=== PATIENT | male | born 1950 | race Caucasian/White ===

== ENCOUNTER 2018-09-29 20:08 | Emergency (ER) | payer BC, SELFPAY ==
[2018-09-29 20:09] VITALS: BP 190/110; PULSE 68; RESP 16; TEMP 36.6; O2SAT 96; BMI 38.2
--- NOTE | 2018-09-29 20:36 | RAD_ITS ---
STUDY: X-RAY - RIGHT FOOT CLINICAL: Male, 67 years old. Pain TECHNIQUE: 3 view(s) of the foot. COMPARISON: None. FINDINGS: Normal talus,, and tarsal bones. Small plantar calcaneal spur and posterior enthesophyte Normal visualized subtalar, calcaneocuboid, tarsal and tarsometatarsal articulations. Talonavicular spurring. Normal metatarsi. 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 Normal tibial and fibular sesamoid bones. Normal interphalangeal joint of the great toe. Normal phalanges of the great toe. Normal second through fifth metatarsophalangeal joints. Normal interphalangeal joints and phalanges of the lesser toes. The soft tissue structures are unremarkable. RAD/Foot min 3 Views IMPRESSION: Degenerative changes. No evidence for acute fracture or dislocation Electronically Signed: Tommie Burciaga MD at 20:59 EDT , Service support ,
--- NOTE | 2018-09-29 21:34 | ED.VIS.GEN ---
History of Present Illness Chief Complaint: Lower Extremity Injury Detail of Chief Complaint: Right foot injury Informant: Patient Onset: Today Context: Gradual Onset Timing: Continuous Current Severity: Severe Maximum Severity: Severe Narrative: Patient was playing golf earlier this afternoon when he stepped in a hole. He states his foot twisted and he had immediate pain to the midfoot. He was able to make at home and iced it for several hours. Pain has continued to worsen. He is now able to wiggle toes but has limited range of motion secondary to pain. He came in with crutches. Past Medical History - Allergies and Home Meds Allergies/Adverse Reactions: Allergies No Known Allergies Allergy (Verified 09/29/18 20:09) Primary Care Physician: Js Levin MD [Primary Care Provider] - Prior records reviewed: Yes Past Medical History: - - Reviewed Lives: Spouse/ Significant Other Smoking Status: Former smoker Review of Systems General: Denies: Chills, Fever Eyes: Denies: Visual changes - bilaterally ENT: Denies: Bilateral ear pain Cardiovascular: Denies: Chest pain Respiratory: Denies: Dyspnea Gastrointestinal: Denies: Abdominal pain Musculoskeletal: Reports: Arthralgias, Extremity Pain Skin: Denies: Wounds Neurological: Denies: Parasthesia Hematologic: Denies: Easy bruising Allergy: Denies: Uticaria Physical Exam Vital Signs/Narrative: Vital Signs Temp Pulse Resp BP Pulse Ox 09/29/18 20:09 98 F 68 16 190/110 H 96 Inital Vital Signs reviewed: Yes General: Well nourished Head: Normocephalic ENT: Moist mucous membranes Cardiovascular: Regular rate Respiratory: No distress, CTA bilaterally Abdomen: Soft, Nontender Extremities: Tenderness - Tenderness to palpation over the midfoot with mild edema. No ecchymosis. Good cap refill distally. No focal tenderness at the ankle or over the tib-fib. Normal sensation is noted. Skin: Normal color Neurological: Alert, Oriented x3 Psychological: Normal affect Diagnostic/Tx/Re-eval Impressions Foot X-Ray 09/29/18 20:36 IMPRESSION: Degenerative changes. No evidence for acute fracture or dislocation Electronically Signed: Tommie Burciaga MD at 20:59 EDT , Service support , 09/29/18 20:36 Xray Foot [Foot min 3 Views] [RAD] Stat - Medical Decision Making Test results are reviewed with the patient. He will be given a walking boot and he will use his crutches. He will be given Douglas for pain. He wishes to stay within the [facility] and will follow up with Dr. Angulo for orthopedics. ED Disposition - Plan for ED Patient: Disposition: Home or Assisted Living Diagnosis: Right foot sprain Instructions: Sprain Foot Prescriptions: Hydrocodone Bitart/Apap 5-325 [Douglas 5MG-325MG] 1 tablet PO Q6H PRN PRN 3 Days #10 tablet PRN Reason: Pain Referrals: Js Levin MD [Primary Care Provider] - Keegan Angulo MD [STAFF PHYSICIAN] - 1 Week if not improving
[2018-09-29] MEDS: HYDROcodone Bitartrate/Apap 5/325 Tablet PO (21:41)
[2018-09-29 22:32] VITALS: BP 178/102; PULSE 91; RESP 14; O2SAT 95
== END 2018-09-29 22:33 | disposition home or self-care (01) ==
PROVIDERS: Emergency Provider Emergency Medicine; Family Provider Family Medicine; PCP Family Medicine
DX: S93.601A Unspecified sprain of right foot, initial encounter (principal); W17.2XXA Fall into hole, initial encounter; Y93.53 Activity, golf; Y92.9 Unspecified place or not applicable; Y99.9 Unspecified external cause status; Z87.891 Personal history of nicotine dependence
CPT/HCPCS: 73630; 99283

== ENCOUNTER 2020-01-24 15:57 | Inpatient (IN) | payer MEDICARE, BC, SELFPAY ==
[2019-08-12 07:46] VITALS: BMI 38.2
[2020-01-24 15:57] VITALS: BP 149/89; PULSE 87; RESP 20; TEMP 36.6; O2SAT 95; BMI 38.1
[2020-01-24 16:09] VITALS: BP 150/90; PULSE 88; RESP 20; TEMP 36.6; O2SAT 96
[2020-01-24] MEDS: 0.9% Normal Saline 1,000 ML 1000 ML IV (16:30)
--- NOTE | 2020-01-24 16:30 | ED.DCSUM_ITS ---
History of Present Illness Chief Complaint: ETOH Intox Informant: Patient Onset: Days Context: Gradual Onset Timing: Continuous Current Severity: Moderate Maximum Severity: Severe Narrative: Patient is a 69-year-old male with history of hypertension and prior alcohol abuse the presents to the emergency department requesting detox. Patient states he has been sober for about 10 years. He states he recently started drinking again. He states he drinks about a liter of vodka a day. He states when he cannot get that, he will drink Listerine. He states he is been drinking 1-2 bottles of Listerine every day. His last drink was 2 hours ago. He states that he is addicted to alcohol and feels like he needs detox in order to come off. He states that he is had some abdominal cramping and nausea. He denies any fevers or chills. He states the last time he went through detox, he had no seizures. He is not suicidal or homicidal. Prior similar symptoms: Yes Recent Illness/Hospitalization: No Past Medical History - Allergies and Home Meds Allergies/Adverse Reactions: Allergies No Known Allergies Allergy (Verified 01/24/20 16:01) Primary Care Physician: Js Levin MD [Primary Care Provider] - Prior records reviewed: Yes Past Medical History: - - Hypertension Surgical History: noncontributory Smoking Status: Former smoker Review of Systems General: Denies: Chills, Fever, Sweats Eyes: Denies: Visual changes - bilaterally, Diplopia ENT: Denies: Rhinorrhea, Sore throat Cardiovascular: Denies: Chest pain, Palpitations Respiratory: Denies: Dyspnea, Cough, Dyspnea on exertion Gastrointestinal: Reports: Nausea, Diarrhea. Denies: Abdominal pain, Vomiting, Melena, Hematochezia Genitourinary: Denies: Dysuria, Hematuria, Frequency Musculoskeletal: Denies: Back pain, Extremity Pain Skin: Denies: Rash, Wounds Neurological: Denies: Headache, Weakness, Numbness Physical Exam Vital Signs/Narrative: Vital Signs Temp Pulse Resp BP Pulse Ox 01/24/20 16:09 97.8 F 88 20 H 150/90 H 96 01/24/20 15:57 97.9 F 87 20 H 149/89 H 95 Inital Vital Signs reviewed: Yes General: Well nourished, Well developed, No Acute Distress Head: Normocephalic, Atraumatic Eyes: Perrl, EOMI ENT: Moist mucous membranes, No rhinorrhea Neck: Supple, Nontender Cardiovascular: Regular rate, Regular rhythm, No murmurs Respiratory: No distress, CTA bilaterally, Chest nontender Abdomen: Soft, Nontender, Nondistended, Normal bowel sounds Back: Nontender, Normal Inspection Extremities: Nontender, No edema Skin: Normal color, No rash Neurological: Alert, Oriented x3, Cranial nerves II-XII grossly intact, Normal Strength, Normal Sensation Psychological: Normal affect, Normal Mood Diagnostic/Tx/Re-eval Abnormal Lab Results 01/24/20 01/24/20 01/24/20 16:20 16:20 16:20 WBC 9.8 RBC 5.52 Hgb 16.5 Hct 50.9 MCV 92.2 MCH 29.9 MCHC 32.4 RDW Std Deviation 45.6 H RDW Coeff of Liz 13.4 Plt Count 312 MPV 9.2 Immature Gran % (Auto) 0.600 Neut % (Auto) 68.9 Lymph % (Auto) 22.5 Jennings % (Auto) 6.7 Eos % (Auto) 0.5 Baso % (Auto) 0.8 Absolute Neuts (auto) 6.7 Absolute Lymphs (auto) 2.20 Nucleated RBC % 0 Sodium 142 Potassium 3.7 Chloride 109 H Carbon Dioxide 20.0 L Anion Gap 13 BUN 17 Creatinine 1.24 Estim Creat Clear Calc 67.21 Est GFR (MDRD) Af Amer 75 Est GFR (MDRD) Non-Af 62 BUN/Creatinine Ratio 13.7 Glucose 76 Calcium 8.8 Total Bilirubin 0.50 AST 20 ALT 27 Alkaline Phosphatase 99 Total Protein 7.7 Albumin 3.8 Globulin 3.9 Albumin/Globulin Ratio 1.0 Salicylates Ethyl Alcohol 232.0 01/24/20 16:20 WBC RBC Hgb Hct MCV MCH MCHC RDW Std Deviation RDW Coeff of Liz Plt Count MPV Immature Gran % (Auto) Neut % (Auto) Lymph % (Auto) Jennings % (Auto) Eos % (Auto) Baso % (Auto) Absolute Neuts (auto) Absolute Lymphs (auto) Nucleated RBC % Sodium Potassium Chloride Carbon Dioxide Anion Gap BUN Creatinine Estim Creat Clear Calc Est GFR (MDRD) Af Amer Est GFR (MDRD) Non-Af BUN/Creatinine Ratio Glucose Calcium Total Bilirubin AST ALT Alkaline Phosphatase Total Protein Albumin Globulin Albumin/Globulin Ratio Salicylates 2.4 L Ethyl Alcohol - Medical Decision Making Patient presents with history of alcohol dependence requesting alcohol detox. He does drink Listerine. I discussed this with poison control just to make sure there was no concern for toxic alcohol ingestion or other work-up that would be needed. The most common problem is the side effects from the mouthwash itself causing some abdominal cramping. They did not recommend any significant work- up. Metabolic work-up was otherwise unremarkable. Patient is intoxicated. He has no evidence of active withdrawal. He will be admitted for alcohol detox. Impression 1. Alcohol dependence ED Disposition - Plan for ED Patient: Referrals: Js Levin MD [Primary Care Provider] -
[2020-01-24 16:35] LABS: Absolute Neutrophil Count 6.7 X10^3/uL (2.0-7.7); Basophil# 0.08 X10^3/uL; Basophil% 0.8 % (0-1); Eosinophil# 0.05 X10^3/uL; Eosinophils% 0.5 % (0-5); Hematocrit 50.9 % (40-54); Hemoglobin 16.5 g/dL (13.0-16.5); Lymphocyte % 22.5 % (19-41); Mean Corp Hgb Conc 32.4 g/dL (32-36); Mean Corpuscular Hgb 29.9 pg (27.0-32.0); Mean Corpuscular Volume 92.2 fL (80-94); Mean Platelet Vol. 9.2 fl (6.2-12.0); Monocyte# 0.65 X10^3/uL; Monocyte% 6.7 % (0-10); NRBC Flagged by Analyzer 0 % (0-5); Neutrophil # 6.72 X10^3/uL (2.7-7.7); Neutrophil % 68.9 % (47-70); Platelet Count 312 K/mm3 (150-450); RBC Distribution Width CV 13.4 % (11.6-14.6); RBC Distribution Width SD 45.6 fl (35.1-43.9); Red Blood Count 5.52 M/mm3 (4.6-6.2); White Blood Count 9.8 K/mm3 (4.4-11.0)
[2020-01-24 16:49] LABS: AST(SGOT) 20 U/L (15-37); Alanine Aminotransfer ALT/SGPT 27 U/L (16-61); Albumin, Serum 3.8 g/dL (3.2-5.0); Alkaline Phosphatase 99 U/L (45-117); Anion Gap 13 (5-15); BUN 17 mg/dL (7-18); BUN/Creat Ratio 13.7 RATIO (10-20); Calcium,Total 8.8 mg/dL (8.5-10.1); Chloride 109 mmol/L (98-107); Creatinine, Serum 1.24 mg/dL (0.70-1.30); EST Glomerular Filtration Rate 62 mL/min (>60); Est Glom Filt Rate - Afr Amer 75 mL/min (>60); Estimated Creatinine Clearance 67.21 ml/min; Globulin 3.9 g/dL (2.2-4.2); Glucose 76 mg/dL (74-106); Potassium 3.7 mmol/L (3.5-5.1); Protein, Total 7.7 g/dL (6.4-8.2); Sodium Level 142 mmol/L (136-145)
--- NOTE | 2020-01-24 16:51 | PCM.HP.STD ---
History of Present Illness Date of Admission: 01/24/20 Chief Complaint: Alcohol withdrawal The patient is a 69 year old M with a PMH as below who presents to the hospital with alcohol withdrawal. He states that he has been drinking heavily for about a month and when he cannot afford vodka he starts drinking Listerine. His last drink of Listerine was this afternoon. Prior to this episode starting a month ago, he had been sober for 10 years. His prior episodes of withdrawal did not lead to seizure or anything like that. He would like to go to rehab once stable. Vital signs and lab work are stable in the ER. His alcohol level is 232 so would anticipate that he should start having worsening symptoms here in the next 12 to 24 hours. Past Medical History Allergies No Known Allergies Allergy (Verified 01/24/20 16:01) Home Medications: Ambulatory Orders Medication Instructions Recorded Hydroxyzine HCl 25 mg PO BID PRN 01/24/20 Sertraline HCl [Zoloft] 50 mg PO DAILY 01/24/20 Surgical History: no surgical history Smoking Status: Former smoker Tobacco Use: Cigarettes Alcohol: Heavy Drugs: None - *Family History Maternal History Items: Unknown Paternal History Items: Unknown Review of Systems Constitutional: Denies: Chills, Fever, Weight Change HEENT: Denies: Head Aches, Sinus Congestion, Sinus Drainage Cardiovascular: Denies: Chest Pain, Palpitations Respiratory: Denies: Cough, Shortness of breath at rest, Sputum production Gastrointestinal: Denies: Abdominal Pain, Nausea, Vomiting Genitourinary: Denies: Dysuria Musculoskeletal: Denies: Joint Pain, Joint Tenderness Skin: Denies: Rash, Wounds Neurological: Denies: Numbness, Tingling, Focal weakness Psychiatric: Reports: Anxiety. Denies: Depression Hematologic/ Lymphatic: Denies: Easy Bruising, Easy Bleeding VTE Information - Inpt Only VTE Present on Admission: No - Physical Exam Vitals/I&O's: Vital Signs Temp Pulse Resp BP Pulse Ox 97.8 F 88 20 H 150/90 H 96 01/24/20 16:09 01/24/20 16:09 01/24/20 16:09 01/24/20 16:09 01/24/20 16:09 Oxygen Delivery Method Room Air Weight: 297 lb Body Mass Index (BMI) 38.1 General: Alert, Oriented x3, Cooperative, No apparent distress HEENT: Atraumatic, PERRLA, EOMI, Normocephalic Oral: Moist Mucosa Neck: Supple, No JVD Lungs: Clear to auscultation, Normal air movement, No rhonchi, No wheeze, No rales Cardiovascular: Regular rate, Regular Rhythm, Normal S1, Normal S2, No murmurs Abdomen: Soft, Non Tender, Non-Distended, No Hepato-splenomegaly Extremities: No edema, Capillary Refill Less than 3 Seconds Skin: No rashes, No breakdown Neurological: Neuro grossly intact, Sensory exam intact to light touch and pain Psych/Mental Status: Anxious Laboratory Results 01/24/20 16:20: WBC 9.8, RBC 5.52, Hgb 16.5, Hct 50.9, MCV 92.2, MCH 29.9, MCHC 32.4, RDW Std Deviation 45.6 H, RDW Coeff of Liz 13.4, Plt Count 312, MPV 9.2, Immature Gran % (Auto) 0.600, Neut % (Auto) 68.9, Lymph % (Auto) 22.5, Brewster % (Auto) 6.7, Eos % (Auto) 0.5, Baso % (Auto) 0.8, Absolute Neuts (auto) 6.7, Absolute Lymphs (auto) 2.20, Nucleated RBC % 0 01/24/20 16:20: Sodium 142, Potassium 3.7, Chloride 109 H, Carbon Dioxide 20.0 L, Anion Gap 13, BUN 17, Creatinine 1.24, Estim Creat Clear Calc 67.21, Est GFR (MDRD) Af Amer 75, Est GFR (MDRD) Non-Af 62, BUN/Creatinine Ratio 13.7, Glucose 76, Calcium 8.8, Total Bilirubin 0.50, AST 20, ALT 27, Alkaline Phosphatase 99, Total Protein 7.7, Albumin 3.8, Globulin 3.9, Albumin/Globulin Ratio 1.0 01/24/20 16:20: Ethyl Alcohol Pending 01/24/20 16:20: Salicylates Pending Current Medications Sodium Chloride () 1,000 mls @ 1,000 mls/hr IV .Q1H ONE Stop: 01/24/20 17:08 Last Admin: 01/24/20 16:30 Dose: 1,000 mls/hr Documented by: Assessment/Plan 1. Alcohol withdrawal?anxiety and depression -He drinks about a bottle of vodka a day and when he can get that he drinks Listerine. -Control was notified by the ER and they did not recommend any specific treatment for the Listerine that just causes GI upset -Continue with the alcohol withdrawal protocol and refer him to 180 for outpatient rehab -We will resume daily Zoloft DVT: Ambulation Inpatient E&M: 06099 Init Hosp L2
[2020-01-24 16:55] LABS: Salicylate 2.4 mg/dL (2.8-20.0)
--- NOTE | 2020-01-24 16:57 | NURSING ---
MED SURG [place] ALCOHOL DEPENDENCE
--- NOTE | 2020-01-24 17:06 | NURSING ---
DR JHAVERI IN ROOM
[2020-01-24 17:11] VITALS: BP 134/71; PULSE 66; RESP 20; TEMP 36.6; O2SAT 95
[2020-01-24 17:49] VITALS: BMI 38.1
[2020-01-24 18:09] VITALS: BP 147/76; PULSE 68; RESP 18; TEMP 36.4; O2SAT 98
[2020-01-24] MEDS: Phenobarbital 32.4 MG Tablet 64.8 MG PO ×2 (18:16→22:25)
[2020-01-24] MEDS: hydrOXYzine PAM 25 MG Capsule 50 MG PO (18:16)
[2020-01-24 22:00] VITALS: BP 144/76; PULSE 68; RESP 20; TEMP 36.4; TEMP 36.6; O2SAT 97
[2020-01-24 23:24] LABS: Acetaminophen (Tylenol) Level < 2.0 ug/mL (10.0-30.0)
[2020-01-25 02:00] VITALS: BP 147/80; PULSE 76; RESP 18; TEMP 36.7; O2SAT 94
[2020-01-25] MEDS: Phenobarbital 32.4 MG Tablet 64.8 MG PO ×6 (02:10→21:29)
[2020-01-25] MEDS: hydrOXYzine PAM 25 MG Capsule 50 MG PO (02:10)
[2020-01-25 05:40] VITALS: BP 159/78; PULSE 83; RESP 18; TEMP 36.7; O2SAT 96
[2020-01-25] MEDS: Gabapentin 300 MG Capsule PO ×2 (05:41→18:27)
--- NOTE | 2020-01-25 07:52 | PN_ITS ---
Reason for Visit: Acute alcohol withdrawal syndrome Objective: Seen and examined. Patient admitted with withdrawal symptoms. Currently denies seizure now or alcohol withdrawal seizure in the past. No hallucinations. Denies nausea, vomiting or diarrhea. Mild anxiety symptoms. Physical exam General: Alert, Oriented x3, Cooperative, morbid obesity BMI 38.1 kg/m? HEENT: Atraumatic, PERRLA, EOMI, Normocephalic Oral: No Gingival or Mucosal Lesions/ Ulcerations Neck: Supple, No JVD, Negative Carotid Bruits Lungs: Air entry diminished in bilateral lung bases. No crepitation/rhonchi Cardiovascular: Regular rate, Regular Rhythm, Normal S1, Normal S2, No murmurs Abdomen: Bowel Sounds Present, Soft, Non Tender, Non-Distended : No renal angle tenderness. No suprapubic tenderness. Extremities: No edema, Capillary Refill Less than 3 Seconds Skin: No rashes, No breakdown Musculoskeletal: No Tenderness to Palpation of Joints or Extremities Neurological: Cranial nerves II-XII grossly intact, Deep Tendon Reflexes 2+/4 and Symmetrical, Neuro grossly intact Psych/Mental Status: Normal Affect, Appropriate. Vitals/I&O's: Vital Signs Temp Pulse Resp BP Pulse Ox 98.1 F 83 18 159/78 H 96 01/25/20 05:40 01/25/20 05:40 01/25/20 05:40 01/25/20 05:40 01/25/20 05:40 Oxygen Delivery Method Room Air Weight: 297 lb 0.002 oz Body Mass Index (BMI) 38.1 Intake and Output for Last 24 Hours 01/23/20 01/24/20 01/25/20 23:59 23:59 23:59 Intake Total 1360 / 2160 1300 / 1300 Balance 1360 / 2160 1300 / 1300 Laboratory Results 01/24/20 16:20: WBC 9.8, RBC 5.52, Hgb 16.5, Hct 50.9, MCV 92.2, MCH 29.9, MCHC 32.4, RDW Std Deviation 45.6 H, RDW Coeff of Liz 13.4, Plt Count 312, MPV 9.2, Immature Gran % (Auto) 0.600, Neut % (Auto) 68.9, Lymph % (Auto) 22.5, Whitley % (Auto) 6.7, Eos % (Auto) 0.5, Baso % (Auto) 0.8, Absolute Neuts (auto) 6.7, Abso lute Lymphs (auto) 2.20, Nucleated RBC % 0 01/24/20 16:20: Sodium 142, Potassium 3.7, Chloride 109 H, Carbon Dioxide 20.0 L , Anion Gap 13, BUN 17, Creatinine 1.24, Estim Creat Clear Calc 67.21, Est GFR (MDRD) Af Amer 75, Est GFR (MDRD) Non-Af 62, BUN/Creatinine Ratio 13.7, Glucose 76, Calcium 8.8, Total Bilirubin 0.50, AST 20, ALT 27, Alkaline Phosphatase 99, Total Protein 7.7, Albumin 3.8, Globulin 3.9, Albumin/Globulin Ratio 1.0 01/24/20 16:20: Ethyl Alcohol 232.0 01/24/20 16:20: Salicylates 2.4 L 01/24/20 16:20: Acetaminophen < 2.0 L Current Medications Dicyclomine HCl (Dicyclomine 10 Mg Capsule) 20 mg PO Q6H PRN PRN PRN Reason: abdominal discomfort Folic Acid (Folic Acid 1 Mg Tablet) 1 mg PO DAILY@0800 KARLA Gabapentin (Gabapentin 300 Mg Capsule) 300 mg PO Q8H PRN PRN PRN Reason: moderate to severe anxiety Last Admin: 01/25/20 05:41 Dose: 300 mg Documented by: Hydroxyzine Pamoate (Hydroxyzine Martha 25 Mg Capsule) 50 mg PO Q4H PRN PRN PRN Reason: mild anxiety Last Admin: 01/25/20 02:10 Dose: 50 mg Documented by: Sodium Chloride () 250 mls @ 15 mls/hr IV .[id number] PRN PRN Reason: Saline Flush Loperamide HCl (Loperamide 2 Mg Capsule) 2 mg PO Q4H PRN PRN PRN Reason: LOOSE STOOLS Ondansetron HCl (Ondansetron 8 Mg Tablet) 8 mg PO Q8H PRN PRN PRN Reason: NAUSEA Phenobarbital (Phenobarbital 32.4 Mg Tablet) 97.2 mg PO Q4H KARLA; Taper Stop: 01/29/20 02:14 Last Admin: 01/25/20 05:41 Dose: 97.2 mg Documented by: Sertraline HCl (Sertraline 50 Mg Tablet) 50 mg PO DAILY KARLA Sodium Chloride (0.9% Saline Lock 10 Ml Syringe) 10 - 40 ml IV UD PRN PRN Reason: SALINE FLUSH Thiamine HCl (Thiamine Hydrochloride 100 Mg Tablet) 100 mg PO DAILYCM KARLA Trazodone HCl (Trazodone 100 Mg Tablet) 100 mg PO QHS PRN PRN Reason: INSOMNIA STROKE Vital Signs/Narrative: Vital Signs Temp Pulse Resp BP Pulse Ox 01/25/20 05:40 98.1 F 83 18 159/78 H 96 Medical Necessity - Tobacco Use Smoking Status: Former smoker Tobacco Use: Cigarettes Assessment/Plan There is a 69-year-old is admitted with alcohol withdrawal symptoms. He drinks a bottle of vodka every day. 1. Alcohol withdrawal withdrawal syndrome: Patient is on phenobarbitone based other supportive medications including gabapentin, Bentyl, sertraline, and trazodone. On thiamine and folic acid. assistant housekeeping manager consult for 180. 2. Acute anxiety and depression, related to substance use alcohol: 3. VTE prophylaxis, moderate risk: Lovenox 40 mg subcu daily. NOACs has signi ficant possible drug drug interaction with phenobarbitone because of PE?GP and strong CYP 3A4 inducer. Inpatient E&M: 84748 Subs Hosp L2
[2020-01-25 08:24] VITALS: BP 167/79; PULSE 95; RESP 16; TEMP 36.9; O2SAT 94
[2020-01-25] MEDS: Folic Acid 1 MG Tablet PO (08:41)
[2020-01-25] MEDS: Thiamine Hydrochloride 100 MG Tablet PO (08:41)
[2020-01-25] MEDS: Sertraline 50 MG Tablet PO (09:53)
--- NOTE | 2020-01-25 11:38 | ADDICTION ---
This aligner typewriter met with patient, in his room, to complete ASAM, MSE and AUDIT assessments and to plan for discharge. Patient was alert/oriented x4 and was able to effectively communicate throughout session. He reports that, at this time, he plans to d/c home but will follow up with [facility]. This aligner typewriter will complete full biopsychosocial assessment with patient tomorrow to start the process of [facility] engagement. Patient amiable to this plan and will further consider Residential and IOP options following the assessment. This aligner typewriter will update [facility] staff of this plan. Patient did not request transportation coordination for discharge.
[2020-01-25 14:13] VITALS: BP 151/68; PULSE 85; RESP 16; TEMP 36.6; O2SAT 94
[2020-01-25] MEDS: Enoxaparin 40 MG/0.4 ML Syringe SC (14:24)
[2020-01-25 18:14] VITALS: BP 168/74; PULSE 69; RESP 16; TEMP 36.6; O2SAT 97
[2020-01-25 21:17] VITALS: BP 161/84; PULSE 65; RESP 16; TEMP 36.3; O2SAT 97
[2020-01-25] MEDS: traZODone 100 MG Tablet PO (21:29)
[2020-01-26 02:46] VITALS: BP 133/72; PULSE 80; RESP 16; TEMP 36.4; O2SAT 97
[2020-01-26] MEDS: Phenobarbital 32.4 MG Tablet 64.8 MG PO ×6 (02:50→21:24)
--- NOTE | 2020-01-26 10:17 | ADDICTION ---
This service writer met with patient in his room to finalize d/c plan and to conduct full biopsychosocial assessment to allow patient to engage in outpatient counseling with [facility]. This service writer will complete assessment and will have [facility] intake department contact him to set up appointment with director workforce management. He is amiable to this plan and will d/c home. He did not request transportation.
[2020-01-26] MEDS: Folic Acid 1 MG Tablet PO (10:31)
[2020-01-26] MEDS: Thiamine Hydrochloride 100 MG Tablet PO (10:31)
[2020-01-26] MEDS: Enoxaparin 40 MG/0.4 ML Syringe SC (10:33)
[2020-01-26] MEDS: hydrOXYzine PAM 25 MG Capsule 50 MG PO ×2 (10:34→18:07)
[2020-01-26 10:58] VITALS: BP 134/78; PULSE 78; RESP 18; TEMP 36.6; O2SAT 94
--- NOTE | 2020-01-26 14:13 | CASEMGMT ---
Social Work Note SW received call from Cuca at [facility] stating pt has appointment with [facility] Psychologist February 05, 2020 at 3:00pm at [facility]. Cuca states she will provide card tomorrow to pt with appointment information. Shara Candelaria BOXCAR WEIGHER, RESIDENT MEDICAL OFFICER
[2020-01-26] MEDS: Sertraline 50 MG Tablet PO (14:16)
[2020-01-26 16:00] VITALS: BP 115/58; PULSE 80; RESP 18; TEMP 36.7; O2SAT 96
--- NOTE | 2020-01-26 16:19 | PN_ITS ---
Reason for Visit: Follow-up for alcohol withdrawal. Objective: Complain of mild anxiety otherwise is feeling good. Heart rate and blood pressure is controlled. Denies hallucinations. Physical exam General: Alert, Oriented x3, Cooperative HEENT: Atraumatic, PERRLA, EOMI, Normocephalic Oral: No Gingival or Mucosal Lesions/ Ulcerations Neck: Supple, No JVD, Negative Carotid Bruits Lungs: Air entry diminished in bilateral lung bases. No crepitation/rhonchi Cardiovascular: Regular rate, Regular Rhythm, Normal S1, Normal S2, No murmurs Abdomen: Bowel Sounds Present, Soft, Non Tender, Non-Distended : No renal angle tenderness. No suprapubic tenderness. Extremities: No edema, Capillary Refill Less than 3 Seconds Skin: No rashes, No breakdown Musculoskeletal: No Tenderness to Palpation of Joints or Extremities Neurological: Cranial nerves II-XII grossly intact, Deep Tendon Reflexes 2+/4 and Symmetrical, Neuro grossly intact Psych/Mental Status: Normal Affect, Appropriate. Vitals/I&O's: Vital Signs Temp Pulse Resp BP Pulse Ox 97.8 F 78 18 134/78 H 94 01/26/20 10:58 01/26/20 10:58 01/26/20 10:58 01/26/20 10:58 01/26/20 10:58 Oxygen Delivery Method Room Air Weight: 297 lb 0.002 oz Body Mass Index (BMI) 38.1 Intake and Output for Last 24 Hours 01/24/20 01/25/20 01/26/20 23:59 23:59 23:59 Intake Total 1360 / 2160 1780 / 1780 240 / 240 Balance 1360 / 2160 1780 / 1780 240 / 240 Current Medications Dicyclomine HCl (Dicyclomine 10 Mg Capsule) 20 mg PO Q6H PRN PRN PRN Reason: abdominal discomfort Enoxaparin Sodium (Enoxaparin 40 Mg/0.4 Ml Syringe) 40 mg SC DAILY [facility] Last Admin: 01/26/20 10:33 Dose: 40 mg Documented by: Folic Acid (Folic Acid 1 Mg Tablet) 1 mg PO DAILY@0800 [facility] Last Admin: 01/26/20 10:31 Dose: 1 mg Documented by: Gabapentin (Gabapentin 300 Mg Capsule) 300 mg PO Q8H PRN PRN PRN Reason: moderate to severe anxiety Last Admin: 01/25/20 18:27 Dose: 300 mg Documented by: Hydroxyzine Pamoate (Hydroxyzine Martha 25 Mg Capsule) 50 mg PO Q4H PRN PRN PRN Reason: mild anxiety Last Admin: 01/26/20 10:34 Dose: 50 mg Documented by: Sodium Chloride () 250 mls @ 15 mls/hr IV .[id number] PRN PRN Reason: Saline Flush Loperamide HCl (Loperamide 2 Mg Capsule) 2 mg PO Q4H PRN PRN PRN Reason: LOOSE STOOLS Ondansetron HCl (Ondansetron 8 Mg Tablet) 8 mg PO Q8H PRN PRN PRN Reason: NAUSEA Phenobarbital (Phenobarbital 32.4 Mg Tablet) 64.8 mg PO Q4H [facility]; Taper Stop: 01/29/20 02:14 Last Admin: 01/26/20 10:31 Dose: 64.8 mg Documented by: Sertraline HCl (Sertraline 50 Mg Tablet) 50 mg PO DAILY [facility] Last Admin: 01/26/20 14:16 Dose: 50 mg Documented by: Sodium Chloride (0.9% Saline Lock 10 Ml Syringe) 10 - 40 ml IV UD PRN PRN Reason: SALINE FLUSH Thiamine HCl (Thiamine Hydrochloride 100 Mg Tablet) 100 mg PO DAILYCM [facility] Last Admin: 01/26/20 10:31 Dose: 100 mg Documented by: Trazodone HCl (Trazodone 100 Mg Tablet) 100 mg PO QHS PRN PRN Reason: INSOMNIA Last Admin: 01/25/20 21:29 Dose: 100 mg Documented by: Medical Necessity - Tobacco Use Smoking Status: Former smoker Tobacco Use: Cigarettes Assessment/Plan There is a 69-year-old is admitted with alcohol withdrawal symptoms. He drinks a bottle of vodka every day. 1. Alcohol withdrawal withdrawal syndrome: Patient is on phenobarbitone based other supportive medications including gabapentin, Bentyl, sertraline, and trazodone. On thiamine and folic acid. on site property manager consult for 180. 2. Acute anxiety and depression, related to substance use alcohol: 3. VTE prophylaxis, moderate risk: Lovenox 40 mg subcu daily. NOACs has significant possible drug drug interaction with phenobarbitone because of PE?GP and strong CYP 3A4 inducer. Inpatient E&M: 16436 [facility] Hosp L2
[2020-01-26 18:22] VITALS: BP 167/101; PULSE 62; RESP 18; TEMP 36.6; O2SAT 93
[2020-01-26 21:20] VITALS: BP 137/76; PULSE 74; RESP 18; TEMP 36.9; O2SAT 95
[2020-01-26] MEDS: traZODone 100 MG Tablet PO (21:24)
[2020-01-27 02:50] VITALS: BP 129/70; PULSE 72; RESP 16; TEMP 36.9; O2SAT 95
[2020-01-27] MEDS: Phenobarbital 32.4 MG Tablet 64.8 MG PO ×2 (02:52→08:10)
[2020-01-27] MEDS: hydrOXYzine PAM 25 MG Capsule 50 MG PO (08:11)
[2020-01-27] MEDS: Sertraline 50 MG Tablet PO (08:30)
[2020-01-27] MEDS: Thiamine Hydrochloride 100 MG Tablet PO (08:30)
[2020-01-27] MEDS: Folic Acid 1 MG Tablet PO (08:30)
--- NOTE | 2020-01-27 08:50 | NURSING ---
180 counselor here for visit
--- NOTE | 2020-01-27 08:58 | ADDICTION ---
This automatic typewriter inspector met with patient, in his room, to provide support and to finalize discharge plans. Patient requested to speak with his , briefly, to coordinate transportation for discharge. This automatic typewriter inspector facilitated communication with to plan for discharge. Patient is unsure of discharge date but verified that his would be providing transportation upon discharge.
[2020-01-27 09:03] VITALS: BP 124/70; PULSE 100; RESP 18; TEMP 36.6; O2SAT 95
--- NOTE | 2020-01-27 10:43 | PCM.DC ---
You will use the following diet at home:: Regular Your food should be the consistency of: Regular Discharge Activity: May Not Drive Call your doctor if you observe: Fever of 101 or Higher, Numbness or Tingling, Change in Color, Inability to urinate, Inability to have a bowel movement, Shortness of breath, Dizziness, Fainting spells, Swelling in the ankles, Chest pain, Prolonged hiccoughing, Increased palpitations (irregular heartbeat), Calf discomfort, Uncontrolled pain Additional Instructions: Follow-up appointment with psychologist Dr. Hand on 02/05/2020 Allergies/Adverse Reactions: Allergies No Known Allergies Allergy (Verified 01/24/20 16:01) Medications to take at Discharge Sertraline HCl [Zoloft] 50 mg PO DAILY 01/24/20 Folic Acid 1 mg PO DAILY@0800 #30 tab 01/27/20 Hydroxyzine HCl 25 mg PO BID PRN #30 tab 01/27/20 Thiamine Hydrochloride [Vitamin B1] 100 mg PO DAILYCM #30 tab 01/27/20 The following prescriptions were given: Folic Acid 1 mg PO DAILY@0800 #30 tab [facility] Hydroxyzine HCl 25 mg PO BID PRN #30 tab PRN Reason: Anxiety Transmission Status: [facility] Thiamine Hydrochloride [Vitamin B1] 100 mg PO DAILYCM #30 tab Transmission Status: [facility] Primary Care Physician: Js Levin MD [Primary Care Provider] - Please follow up with your Primary Care Physician in: IN 2 WEEKS Test Results: Test results from this visit will be discussed in further detail at your follow-up appointment, if applicable.
--- NOTE | 2020-01-27 10:44 | DS.PCM_ITS ---
Discharge Date and Diagnosis Date of Admission: 01/24/20 Date of Discharge: 01/27/20 - Primary Discharge Diagnosis Acute Problems: Acute alcohol withdrawal syndrome Hospital Course and Treatment Summary of Care Provided: The patient is a 69 year old M is admitted with alcohol withdrawal symptoms. He drinks a bottle of vodka every day. 1. Alcohol withdrawal withdrawal syndrome: Patient is on phenobarbitone based other supportive medications including gabapentin, Bentyl, sertraline, and trazodone. On thiamine and folic acid. e business manager consult for 180. 2. Acute anxiety and depression, related to substance use alcohol: At home patient is on hydroxyzine and sertraline. Prescription for hydroxyzine 25 mg p.o. twice daily ordered with instruction of not driving while patient on hydroxyzine. Discharge medication reconciliation done. Discharge follow-up instructions completed. Discharge process discussed with the patient and all questions were answered to patient's satisfaction. Prescription for folic acid, hydroxyzine and thiamine given. Total time spent, exact 35 minutes on discharge meds reconciliation, examination, coordination of care with nurses and ancillary staff, review of imaging and blood test and discussion with the patient on follow-up instructions Objective: Patient blood pressure and heart rate is good. Has chronic mild anxiety otherwise he is good. Physical exam General: Alert, Oriented x3, Cooperative HEENT: Atraumatic, PERRLA, EOMI, Normocephalic Oral: No Gingival or Mucosal Lesions/ Ulcerations Neck: Supple, No JVD, Negative Carotid Bruits Lungs: Air entry diminished in bilateral lung bases. No crepitation/rhonchi Cardiovascular: Regular rate, Regular Rhythm, Normal S1, Normal S2, No murmurs Abdomen: Bowel Sounds Present, Soft, Non Tender, Non-Distended : No renal angle tenderness. No suprapubic tenderness. Extremities: No edema, Capillary Refill Less than 3 Seconds Skin: No rashes, No breakdown Musculoskeletal: No Tenderness to Palpation of Joints or Extremities Neurological: Cranial nerves II-XII grossly intact, Deep Tendon Reflexes 2+/4 and Symmetrical, Neuro grossly intact Psych/Mental Status: Normal Affect, Appropriate. - Physical Exam Vitals/I&O's: Vital Signs Temp Pulse Resp BP Pulse Ox 97.8 F 100 18 124/70 H 95 01/27/20 09:03 01/27/20 09:03 01/27/20 09:03 01/27/20 09:03 01/27/20 09:03 Oxygen Delivery Method Room Air Weight: 297 lb 0.002 oz Body Mass Index (BMI) 38.1 Intake and Output for Last 24 Hours 01/25/20 01/26/20 01/27/20 23:59 23:59 23:59 Intake Total 1780 / 1780 240 / 240 Balance 1780 / 1780 240 / 240 Current Medications Dicyclomine HCl (Dicyclomine 10 Mg Capsule) 20 mg PO Q6H PRN PRN PRN Reason: abdominal discomfort Enoxaparin Sodium (Enoxaparin 40 Mg/0.4 Ml Syringe) 40 mg SC DAILY [facility] Last Admin: 01/26/20 10:33 Dose: 40 mg Documented by: Folic Acid (Folic Acid 1 Mg Tablet) 1 mg PO DAILY@0800 [facility] Last Admin: 01/27/20 08:30 Dose: 1 mg Documented by: Gabapentin (Gabapentin 300 Mg Capsule) 300 mg PO Q8H PRN PRN PRN Reason: moderate to severe anxiety Last Admin: 01/25/20 18:27 Dose: 300 mg Documented by: Hydroxyzine Pamoate (Hydroxyzine Martha 25 Mg Capsule) 50 mg PO Q4H PRN PRN PRN Reason: mild anxiety Last Admin: 01/27/20 08:11 Dose: 50 mg Documented by: Sodium Chloride () 250 mls @ 15 mls/hr IV .[id number] PRN PRN Reason: Saline Flush Loperamide HCl (Loperamide 2 Mg Capsule) 2 mg PO Q4H PRN PRN PRN Reason: LOOSE STOOLS Ondansetron HCl (Ondansetron 8 Mg Tablet) 8 mg PO Q8H PRN PRN PRN Reason: NAUSEA Phenobarbital (Phenobarbital 32.4 Mg Tablet) 64.8 mg PO Q6H [facility]; Taper Stop: 01/29/20 02:14 Last Admin: 01/27/20 08:10 Dose: 64.8 mg Documented by: Sertraline HCl (Sertraline 50 Mg Tablet) 50 mg PO DAILY [facility] Last Admin: 01/27/20 08:30 Dose: 50 mg Documented by: Sodium Chloride (0.9% Saline Lock 10 Ml Syringe) 10 - 40 ml IV UD PRN PRN Reason: SALINE FLUSH Thiamine HCl (Thiamine Hydrochloride 100 Mg Tablet) 100 mg PO DAILYCM KARLA Last Admin: 01/27/20 08:30 Dose: 100 mg Documented by: Trazodone HCl (Trazodone 100 Mg Tablet) 100 mg PO QHS PRN PRN Reason: INSOMNIA Last Admin: 01/26/20 21:24 Dose: 100 mg Documented by: Discharge Activity: May Not Drive Call your doctor if you observe: Fever of 101 or Higher, Numbness or Tingling, Change in Color, Inability to urinate, Inability to have a bowel movement, Shortness of breath, Dizziness, Fainting spells, Swelling in the ankles, Chest pain, Prolonged hiccoughing, Increased palpitations (irregular heartbeat), Calf discomfort, Uncontrolled pain Home Medications: Medications to take at Discharge Sertraline HCl [Zoloft] 50 mg PO DAILY 01/24/20 Folic Acid 1 mg PO DAILY@0800 #30 tab 01/27/20 Hydroxyzine HCl 25 mg PO BID PRN #30 tab 01/27/20 Thiamine Hydrochloride [Vitamin B1] 100 mg PO DAILYCM #30 tab 01/27/20 Following Prescriptions Were Given to Patient: Folic Acid 1 mg PO DAILY@0800 #30 tab [facility] Status[facility] Hydroxyzine HCl 25 mg PO BID PRN #30 tab PRN Reason: Anxiety Transmission Status: [facility] Thiamine Hydrochloride [Vitamin B1] 100 mg PO DAILYCM #30 tab Transmission Status: [facility] by [facility] Primary Care Physician: Js Levin MD [Primary Care Provider] - Please follow up with your Primary Care Physician in: IN 2 WEEKS Medical Necessity - Tobacco Use Smoking Status: Former smoker Tobacco Use: Cigarettes Meaningful Use Info Meaningful Use Diagnoses (Choose all that apply): None applicable Inpatient E&M: 21088 Disch Hosp
== END 2020-01-27 11:58 | disposition home or self-care (01) | DRG 897 ==
LOC: ED 17:07 → MS3 17:33
PROVIDERS: Hospitalist; Admitting Provider Family Medicine; Emergency Provider Emergency Medicine; PCP Family Medicine; Visit Provider Internal Medicine
DX: F10.239 Alcohol dependence with withdrawal, unspecified (principal); F10.229 Alcohol dependence with intoxication, unspecified; Y90.7 Blood alcohol level of 200-239 mg/100 ml; I10 Essential (primary) hypertension; F32.9 Major depressive disorder, single episode, unspecified; F41.9 Anxiety disorder, unspecified; E66.01 Morbid (severe) obesity due to excess calories; Z68.38 Body mass index [BMI] 38.0-38.9, adult; Z79.899 Other long term (current) drug therapy; Z87.891 Personal history of nicotine dependence
CPT/HCPCS: 80053; 80320; 80329; 85025; 99285; J7030; A4216; G0480

== ENCOUNTER 2020-02-01 14:39 | Emergency (ER) | payer MEDICARE, BC, SELFPAY ==
[2020-01-24 17:49] VITALS: BMI 38.1
[2020-02-01] VITALS (8 sets, daily range): BP systolic 150–151; BP diastolic 79–91; PULSE 72–90; RESP 15–18; TEMP 36.7–37.1; O2SAT 96; BMI 37.8
--- NOTE | 2020-02-01 14:56 | ED.VIS.GEN ---
History of Present Illness Chief Complaint: Suicidal Informant: Patient Narrative: Patient is a 69-year-old male with a past medical history of depression/anxiety who presents to the emergency department for anxiousness, suicidal ideation. He has been feeling this way over the past several days. He states he feels like there is no hope for him to get out of feeling here today or not his anxiousness. He has a history of suicide attempt but it has been over 35 years ago. He states he feels like he can spiral downhill fast. He states that he does have a chronic issue with alcoholism but has not drank for the past week whenever he was admitted for this. He did have a recent medication change with his Effexor. He does not currently have a plan to harm himself. Does not want to harm anybody else. He denies any issues with drugs. He is currently denying any physical symptoms. Denies any headache or vision changes. No chest pain, shortness of breath or heart palpitations. Past Medical History - Allergies and Home Meds Allergies/Adverse Reactions: Allergies No Known Allergies Allergy (Verified 02/01/20 14:44) Primary Care Physician: Js Levin MD [Primary Care Provider] - Prior records reviewed: Yes Surgical History: no surgical history Smoking Status: Former smoker Alcohol: Sober Drugs: None - Family History Maternal Family History: Reports: Unknown Paternal Family History: Reports: Unknown Review of Systems All systems negative except as indicated General: Denies: Chills, Fever, Sweats Eyes: Denies: Visual changes - bilaterally, Diplopia ENT: Denies: Rhinorrhea, Sore throat Cardiovascular: Denies: Chest pain, Palpitations Respiratory: Denies: Dyspnea, Cough, Dyspnea on exertion Gastrointestinal: Denies: Abdominal pain, Nausea, Vomiting, Diarrhea, Melena, Hematochezia Genitourinary: Denies: Dysuria, Hematuria, Frequency Musculoskeletal: Denies: Back pain, Extremity Pain Skin: Denies: Rash, Wounds Neurological: Denies: Headache, Weakness, Numbness Psych: Reports: Anxiety, Suicidal ideations Physical Exam Vital Signs/Narrative: Vital Signs Temp Pulse Resp BP Pulse Ox 02/01/20 14:40 98.1 F 90 18 150/91 H 96 Inital Vital Signs reviewed: Yes General: Well nourished, Well developed, No Acute Distress Head: Normocephalic, Atraumatic Eyes: Perrl, EOMI ENT: Moist mucous membranes, No rhinorrhea Neck: Supple, Nontender Cardiovascular: Regular rate, Regular rhythm, No murmurs Respiratory: No distress, CTA bilaterally, Chest nontender Abdomen: Soft, Nontender, Nondistended, Normal bowel sounds Back: Nontender, Normal Inspection Extremities: Nontender, No edema Skin: Normal color, No rash Neurological: Alert, Oriented x3, Cranial nerves II-XII grossly intact, Normal Strength, Normal Sensation Psychological: Normal affect, Normal Mood, - - Answering questions appropriately and is cooperative. Diagnostic/Tx/Re-eval - EKG Initial EKG Interpretation: - - Rate of 62 bpm normal sinus rhythm. Normal intervals. Normal axis. No ST elevations or depressions. No T wave abnormalities. - Medical Decision Making Patient presents to the emerge department for suicidal ideation without a plan. He does have history of anxiety/depression. Upon arrival to the emergency department his vital signs are within normal limits and he has a benign physical exam. Will check basic lab work and have crisis evaluate. Patient's lab work did not reveal a significant acute abnormality. He was evaluated by crisis. They did feel patient required inpatient hospitalization. [facility] slip was filled out. He is medically cleared for transfer. [facility] did accept the patient by Dr. Reza. Patient otherwise has been stable throughout ED stay. He is agreeable with this plan. ED Disposition - Plan for ED Patient: Disposition: Psychiatric Hospital or Unit Diagnosis: Suicidal ideation, Anxiety Referrals: Js Levin MD [Primary Care Provider] -
[2020-02-01 15:26] LABS: Absolute Lymphocyte Count 1.02 X10^3/uL (0.83-4.51); Absolute Neutrophil Count 6.5 X10^3/uL (2.0-7.7); Basophil# 0.07 X10^3/uL; Basophil% 0.8 % (0-1); Eosinophil# 0.08 X10^3/uL; Eosinophils% 0.9 % (0-5); Hematocrit 47.1 % (40-54); Hemoglobin 16.2 g/dL (13.0-16.5); Lymphocyte # 1.02 X10^3/ul (4.0); Mean Corp Hgb Conc 34.4 g/dL (32-36); Mean Corpuscular Hgb 30.9 pg (27.0-32.0); Mean Corpuscular Volume 89.9 fL (80-94); Mean Platelet Vol. 9.1 fl (6.2-12.0); Monocyte# 0.79 X10^3/uL; Monocyte% 9.3 % (0-10); NRBC Flagged by Analyzer 0 % (0-5); Neutrophil # 6.47 X10^3/uL (2.7-7.7); Neutrophil % 76.5 % (47-70); Platelet Count 308 K/mm3 (150-450); RBC Distribution Width CV 13.2 % (11.6-14.6); RBC Distribution Width SD 43.2 fl (35.1-43.9); Red Blood Count 5.24 M/mm3 (4.6-6.2); White Blood Count 8.5 K/mm3 (4.4-11.0)
[2020-02-01 15:40] LABS: Amphetamine Urine VISTA NEGATIVE (<1000 ng/mL); Barbiturate Urine VISTA POSITIVE (< 200 ng/mL); Benzodiazepine Urine VISTA NEGATIVE (< 200 ng/mL); Cocaine Urine VISTA NEGATIVE (< 300 ng/mL); Ecstacy Urine VISTA NEGATIVE (< 500 ng/mL); Methadone Urine VISTA NEGATIVE (< 300 ng/mL); PCP Urine VISTA NEGATIVE (< 25 ng/mL); THC Urine VISTA NEGATIVE (< 50 ng/mL); Vista UDS pH Range 6
[2020-02-01 15:41] LABS: AST(SGOT) 12 U/L (15-37); Alanine Aminotransfer ALT/SGPT 24 U/L (16-61); Albumin, Serum 3.8 g/dL (3.2-5.0); Alkaline Phosphatase 105 U/L (45-117); Anion Gap 7 (5-15); BUN 10 mg/dL (7-18); BUN/Creat Ratio 8.7 RATIO (10-20); Calcium,Total 8.9 mg/dL (8.5-10.1); Chloride 105 mmol/L (98-107); Creatinine, Serum 1.15 mg/dL (0.70-1.30); EST Glomerular Filtration Rate 67 mL/min (>60); Est Glom Filt Rate - Afr Amer 82 mL/min (>60); Estimated Creatinine Clearance 72.47 ml/min; Glucose 105 mg/dL (74-106); Potassium 3.8 mmol/L (3.5-5.1); Protein, Total 7.8 g/dL (6.4-8.2); Sodium Level 137 mmol/L (136-145)
--- NOTE | 2020-02-01 16:00 | CM.ED ---
SOCIAL WORK Informant: Dr. Ma Reason for Consult: Suicidal Ideation Chief Compliant: I feel like I am shaking apart from the inside out. Patient reports constant state of panic, unable to eat or sleep for last 2 days. Marital/Social History: Living Situation: Home with Support/Resources: and son Education/Employment History: Bachelor's Degree, Retired Mental Health Treatment/History: Depression and Anxiety. Patient reports is currently prescribed Hydroxyzine HCL 25mg BID and Zoloft 50mg. Patient states did not take Zoloft today as he believes it may be causing this. Patient reports history of suicide attempt x2 in 1984 by overdose of alcohol and cutting wrists. Patient reports was hospitalized after each attempt. Triggers/Stressors: Nothing new Coping Skills: Patient reports no coping skills Abuse Issues: Patient denies any history of emotional, physical or sexual abuse. Substance Abuse History: Patient reports history of alcohol abuse. Patient was discharged from detox at [facility] on 01/27/2020. Patient denies any current use of alcohol. Risk to Self/Others: Suicidal- Patient admits to suicidal thoughts. Patient reports feelings of helplessness and hopelessness. Patient reports history of suicide attempt x2 in 1984. Homicidal- Patient denies any homicidal ideation. Mental Status Exam: Orientation- A&OX3 Memory- Good Appearance/General Behavior: clean/appropriate, agitated, calm Mood/Affect: flat, depressed, anxious Communication Pattern: responds to questions Thought Process: appropriate Judgment: poor Assessment: Met with patient in room. Introduced role and reason for referral. Patient reports nervous energy and feeling like shaking apart from the inside out. Patient reports over the last 2 days has been unable to sleep or eat. Patient states I'm afraid I'm not going to come out of this. Patient admits to suicidal ideation and reports history of attempts. Patient discussed feelings of fear, hopelessness and helplessness. Patient states has been taking Zoloft and Hydroxyzine for the last 2 weeks and does not feel they are helping. Collaboration with Dr. Ma. Recommending inpatient psych hospitalization for stabilization. This worker to facilitate placement. Plan: Referral for inpatient psych D. MS ShiloW, HRIS DEVELOPER
--- NOTE | 2020-02-01 16:18 | CM.ED ---
SOCIAL WORK Call to Dyan at [facility] to discuss referral. Per Dyan, has 1 bed left and will review referral. Claudio Lao, COLLEGE HIRE, INFORMATION MANAGER
[2020-02-01 16:22] LABS: Alcohol, Blood (Medical)-Serum < 3.0 mg/dL
--- NOTE | 2020-02-01 16:43 | CM.ED ---
SOCIAL WORK Awaiting rapid COVID-19 results. Referral faxed to [facility] for review. Will fax COVID-19 results once received. Claudio Lao, UNIVERSAL GRINDER TOOL, REDYE HAND
--- NOTE | 2020-02-01 17:15 | EKG12_ITS ---
Test Reason : S Blood Pressure : / mmHG Vent. Rate : 062 BPM Atrial Rate : 062 BPM P-R Int : 144 ms QRS Dur : 092 ms QT Int : 426 ms P-R-T Axes : 020 -24 068 degrees QTc Int : 432 ms Normal sinus rhythm Leftward axis Poor R wave progression Confirmed by RAHAT PETER, TREMAYNE ([id number]), copy editor JIMBO JAMES ([id number]) on 02/03/2020 12:58:43 PM Referred By: Confirmed By:TREMAYNE GIANG MD
--- NOTE | 2020-02-01 17:35 | CM.ED ---
SOCIAL WORK Received call from [facility] with [facility] requesting EKG. Dr. Ma updated. EKG completed and results faxed to [facility]. Claudio Lao, SENIOR APPLICATIONS ANALYST, TRAFFIC MANAGER
--- NOTE | 2020-02-01 17:59 | CM.ED ---
SOCIAL WORK Negative COVID-19 results faxed and called to Dyan at [facility]. Dyan to review and get back to this worker. Claudio Lao, COOK HELPER FRUIT, DIVERSITY SPECIALIST
--- NOTE | 2020-02-01 18:54 | CM.ED ---
SOCIAL WORK Dyan with [facility] requesting updated vitals. Updated vitals obtained by nurseVish and called to Dyan. Dyan to speak with physician and get back to this worker. Claudio Lao, FLIGHT CONTROL MANAGER, SHELTERED WORKSHOP WORKER
--- NOTE | 2020-02-01 19:19 | CM.ED ---
SOCIAL WORK Call from [facility] with [facility]. Patient accepted by Dr. Reza. Nurse to call report to [phone]. Electronic Science Teacher to set up transport. Patient and staff gregor. Claudio Lao MSW, MARKETER
--- NOTE | 2020-02-01 19:34 | CM.ED ---
SOCIAL WORK Updated by paralegal legal secretary, Vladimir ETA for transport is 90 minutes to 2 hours. Dyan with [facility] updated on ETA. D. Shilo, PHYSICAL DAMAGE APPRAISER, RECORDS MANAGEMENT MANAGER
== END 2020-02-01 21:32 ==
LOC: ED 15:15
PROVIDERS: Emergency Provider Emergency Medicine; PCP Family Medicine
DX: F41.9 Anxiety disorder, unspecified (principal); F32.9 Major depressive disorder, single episode, unspecified; R45.851 Suicidal ideations; Z20.828 Contact with and (suspected) exposure to other viral communicable diseases; F10.20 Alcohol dependence, uncomplicated; Z79.899 Other long term (current) drug therapy; Z91.5 Personal history of self-harm; Z87.891 Personal history of nicotine dependence
CPT/HCPCS: 80053; 80307; 80320; 85025; 87426; 93005; 99285; G0480

== ENCOUNTER 2023-07-31 09:10 | Emergency (ER) | payer MEDICARE, BC, SELFPAY ==
[2023-07-31 09:15] VITALS: BP 141/95; PULSE 66; RESP 18; TEMP 36.6; O2SAT 98; BMI 34.5
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
[2023-07-31 09:58] LABS: Absolute Lymphocyte Count 0.79 X10^3/uL (0.83-4.51); Absolute Neutrophil Count 6.1 X10^3/uL (2.0-7.7); Basophil# 0.03 X10^3/uL; Basophil% 0.4 % (0-1); Eosinophil# 0.02 X10^3/uL; Eosinophils% 0.3 % (0-5); Hematocrit 47.6 % (40-54); Hemoglobin 15.5 g/dL (13.0-16.5); Lymphocyte # 0.79 X10^3/ul (0.83-4.51); Lymphocyte % 10.4 % (19-41); Mean Corp Hgb Conc 32.6 g/dL (32-36); Mean Corpuscular Hgb 29.5 pg (27.0-32.0); Mean Corpuscular Volume 90.7 fL (80-94); Mean Platelet Vol. 9.5 fl (6.2-12.0); Monocyte# 0.61 X10^3/uL; Monocyte% 8.1 % (0-10); NRBC Flagged by Analyzer 0 % (0-5); Neutrophil # 6.08 X10^3/uL (2.7-7.7); Neutrophil % 80.3 % (47-70); Platelet Count 207 K/mm3 (150-450); RBC Distribution Width CV 13.3 % (11.6-14.6); RBC Distribution Width SD 44.3 fl (35.1-43.9); Red Blood Count 5.25 M/mm3 (4.6-6.2); White Blood Count 7.6 K/mm3 (4.4-11.0)
[2023-07-31 10:10] LABS: Anion Gap 8 (5-15); BUN 17 mg/dL (7-18); BUN/Creat Ratio 12.2 RATIO (10-20); Chloride 106 mmol/L (98-107); Creatinine, Serum 1.39 mg/dL (0.70-1.30); EST Glomerular Filtration Rate 54 mL/min (>60); Est Glom Filt Rate - Afr Amer 65 mL/min (>60); Estimated Creatinine Clearance 68.68 ml/min; Glucose 104 mg/dL (74-106); Potassium 3.7 mmol/L (3.5-5.1); Sodium Level 138 mmol/L (136-145)
[2023-07-31 10:31] LABS: Alcohol, Blood (Medical)-Serum < 3.0 mg/dL
[2023-07-31 11:06] LABS: Amphetamine Urine VISTA NEGATIVE (<1000 ng/mL); Barbiturate Urine VISTA NEGATIVE (< 200 ng/mL); Benzodiazepine Urine VISTA NEGATIVE (< 200 ng/mL); Cocaine Urine VISTA NEGATIVE (< 300 ng/mL); Ecstacy Urine VISTA NEGATIVE (< 500 ng/mL); Methadone Urine VISTA NEGATIVE (< 300 ng/mL); PCP Urine VISTA NEGATIVE (< 25 ng/mL); THC Urine VISTA POSITIVE (< 50 ng/mL); Vista UDS pH Range 6
[2023-07-31 11:12] VITALS: BP 137/82; PULSE 76; RESP 15; O2SAT 98
--- NOTE | 2023-07-31 11:13 | NURSING ---
FAXED CHART TO CRISIS
--- NOTE | 2023-07-31 12:24 | ED.RN ---
per Dr. Lemons, no sitter needed with patient
--- NOTE | 2023-07-31 13:20 | NURSING ---
CRISIS ENROUTE TO [facility] ER
--- NOTE | 2023-07-31 13:24 | NURSING ---
CRISIS HERE IN ROOM
--- NOTE | 2023-07-31 16:34 | NURSING ---
CALLED [facility], ETA IS ABOUT 1900. PATIENT CAN'T ARRIVE BEFORE 1999
--- NOTE | 2023-07-31 16:35 | NURSING ---
ACCEPTED AT [facility]. [place] [address] GARBER NURSE TO NURSE [phone] OPT 2
[2023-07-31 16:39] VITALS: BP 137/77; PULSE 54; RESP 17; TEMP 36.8; O2SAT 94
--- NOTE | 2023-07-31 17:59 | ED.RN ---
NOTIFIED OR WHERE PT IS GOING WHEN TRANSFERRED
--- NOTE | 2023-07-31 18:30 | ED.RN ---
report called to JOSETTE Francis at [facility]
[2023-07-31 19:00] VITALS: BP 127/89; PULSE 55; RESP 16; TEMP 36.8; O2SAT 97
== END 2023-07-31 19:05 ==
PROVIDERS: Emergency Provider Emergency Medicine; PCP Family Medicine; Visit Provider Emergency Medicine
DX: F32.A Depression, unspecified (principal); F41.9 Anxiety disorder, unspecified; Z87.891 Personal history of nicotine dependence; Z79.899 Other long term (current) drug therapy
CPT/HCPCS: 80048; 80307; 80320; 85025; 99283; G0480

== ENCOUNTER 2023-08-11 17:23 | Emergency (ER) | payer MEDICARE, BC, SELFPAY ==
[2023-08-11 17:23] VITALS: BP 121/70; PULSE 72; RESP 16; TEMP 36.6; O2SAT 98; BMI 34.0
--- NOTE | 2023-08-11 17:40 | EKG12_ITS ---
Test Reason : Blood Pressure : / mmHG Vent. Rate : 068 BPM Atrial Rate : 068 BPM P-R Int : 146 ms QRS Dur : 076 ms QT Int : 396 ms P-R-T Axes : -02 -17 052 degrees QTc Int : 421 ms Normal sinus rhythm Low voltage QRS Borderline ECG Confirmed by SASHA PETER, ERIBERTO ([id number]), features editor JIMBO JAMES ([id number]) on 08/12/2023 10:07:52 AM Referred By: Confirmed By:ERIBERTO BAEZ MD
--- NOTE | 2023-08-11 17:40 | EDS_ITS ---
HPI HPI - Psych History of Present Illness Chief Complaint: Mental Health Narrative Narrative: 72-year-old male past medical history of hypertension, depression and anxiety presents with increasing suicidal ideation and what he calls suicidal depression. 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 He states that 40 years ago, he was a registered sex offender, but he strained his life out. He is concerned about this article and now over the last month is having insomnia, decreased appetite, and increased suicidality. He saw his primary care provider initially who put him on sertraline, trazodone, and Vistaril in small doses. He was seen in the emergency department on July 30, and sent to [facility] for 7 days. He was released on the , 4 days ago, but ever since then states he has been getting worse with his suicidality. He denies any physical complaints, no chest pain or shortness of breath. He states he was put on antihypertensives and his blood pressure has been under control. [facility] Medical History Anxiety and depression Home Medications ?Medication ?Instructions ?Recorded ?Last Taken ?Type sertraline 50 mg tablet 200 mg PO DAILY 01/24/20 01/23/20 History trazodone 50 mg tablet 200 mg PO QHS 07/31/23 Unknown History amlodipine 10 mg tablet 10 mg PO DAILY 08/11/23 Unknown History Allergy/AdvReac Type Severity Reaction Status Date / Time No Known Allergies Allergy Verified 08/11/23 17:30 Social History Smoking Status: Current every day smoker tobacco type: smokeless tobacco ROS ROS ED ROS Narrative Constitutional: No fever, no chills. HEENT: No sore throat. No neck pain. No loss of vision. No rhinorrhea. Cardiovascular: No chest pain. No palpitations. No pedal edema. Respiratory: No cough, no shortness of breath. Abdominal: No abdominal pain. No nausea. No vomiting. Genitourinary: No dysuria. No hematuria. Musculoskeletal: No myalgias. No arthralgias. Neurologic: No headaches. No dizziness. No lightheadedness. Skin: No rash. No change in color. Psychiatric: Positive depression with increased suicidality. EXAM Physical Exam Narrative Exam Narrative: Afebrile. Vital signs noted. HEENT: Normocephalic. Atraumatic. PERRL, EOMI. Neck soft and supple. No point tenderness or step off. Cardiovascular: Regular rate and rhythm. No murmurs, rubs, or gallops appreciated. Respiratory: No tachypnea. Lungs clear to auscultation bilaterally. Gastrointestinal: Abdomen soft, nontender, with normoactive bowel sounds. No rebound or guarding. Neurological: Awake. Alert. Nonfocal, nonlateralizing. Skin: No rash. Normal color. No pallor. Musculoskeletal: No pedal edema. Full range of motion extremities. Psychiatric: Mildly depressed affect. Active thoughts of suicide, but no distinct plan. Const Vital Signs: 08/11/23 17:23 08/11/23 20:06 Temperature 97.8 F Temperature Source Temporal Pulse Rate 72 Respiratory Rate 16 18 Blood Pressure 121/70 H Blood Pressure Mean 87 Pulse Ox 98 Oxygen Delivery Method Room Air MDM MDM MDM Narrative Medical decision making narrative: I reviewed the patient's prior ED visits and laboratory work. Although he was sent to [facility], he states that he does not want to return to that facility. Additionally, he relates remote history that he has had 2 suicide attempts in the past, one where he drank alcohol in excess but woke up and called EMS the next morning. At a different time, he had cut his wrist. Medical screening laboratories will be obtained as well as EKG. EKG obtained and interpreted by myself independently as normal sinus rhythm at 68 bpm without ectopy or acute ST changes. No STEMI. I reviewed his laboratory work and he has normal white count of 9.5, hemoglobin normal at 16.0, platelet count normal at 241. CMP is remarkable for creatinine of 1.32 which he has had elevation in the past on his last laboratory work. Sodium normal at 137, potassium 3.5. AST and ALT normal. Ethyl alcohol is negative. Urine for drugs of abuse is positive for MDMA which may have been one of the medications he was given during his recent admission, that is also positive for cannabinoids which it was earlier in the month. At this point in time, I do feel he is medically cleared for evaluation by the crisis counselor. At approximately 2040, in discussion with the crisis counselor, he was felt that he would benefit from placement in a psychiatric facility again given his major depression and increasing suicidal ideation. Currently, he is awaiting acceptance at psychiatric facility. He is in stable condition. History & Record Review Additional record(s) reviewed:: Prior ED visit and Prior labs Lab Data Attestation: I reviewed the patient's lab results. Labs: Laboratory Results - last 24 hr 08/11/23 08/11/23 17:55 19:00 WBC 9.5 RBC 5.29 Hgb 16.0 Hct 47.6 MCV 90.0 MCH 30.2 MCHC 33.6 RDW Std Deviation 43.5 RDW Coeff of Liz 13.2 Plt Count 241 MPV 9.3 Immature Gran % (Auto) 0.400 Neut % (Auto) 76.2 H Lymph % (Auto) 12.3 L Stanly % (Auto) 10.0 Eos % (Auto) 0.8 Baso % (Auto) 0.3 Absolute Neuts (auto) 7.2 Absolute Lymphs (auto) 1.16 Nucleated RBC % 0 Sodium 137 Potassium 3.5 Chloride 106 Carbon Dioxide 22.0 Anion Gap 9 BUN 16 Creatinine 1.32 H Estim Creat Clear Calc 71.74 Est GFR (MDRD) Af Amer 69 Est GFR (MDRD) Non-Af 57 L BUN/Creatinine Ratio 12.1 Glucose 107 H Calcium 9.4 Total Bilirubin 0.70 AST 17 ALT 23 Alkaline Phosphatase 82 Total Protein 7.4 Albumin 3.9 Globulin 3.5 Albumin/Globulin Ratio 1.1 Urine Opiates Screen NEGATIVE Urine Methadone Screen NEGATIVE Ur Barbiturates Screen NEGATIVE Ur Phencyclidine Scrn NEGATIVE Ur Amphetamines Screen NEGATIVE MDMA (Ecstasy) Screen POSITIVE H U Benzodiazepines Scrn NEGATIVE Urine Cocaine Screen NEGATIVE U Cannabinoids Screen POSITIVE H Ur Drug Screen Comment Ethyl Alcohol < 3.0 Discharge Plan Triage Chief Complaint: Mental Health ED Provider: Zuhair Cleveland Dx/Rx/DC Orders Clinical Impression: Major depression, Suicidal ideation Prescriptions: No Action sertraline 50 MG tablet 200 mg PO DAILY trazodone 50 mg tablet 200 mg PO QHS amlodipine 10 mg tablet 10 mg PO DAILY Primary Care Provider: Js Levin Referrals: Js Levin MD [Primary Care Provider] - Print Language: Spanish Disposition Disposition: Psychiatric Hospital or Unit
[2023-08-11 18:03] LABS: Absolute Lymphocyte Count 1.16 X10^3/uL (0.83-4.51); Absolute Neutrophil Count 7.2 X10^3/uL (2.0-7.7); Basophil# 0.03 X10^3/uL; Basophil% 0.3 % (0-1); Eosinophil# 0.08 X10^3/uL; Eosinophils% 0.8 % (0-5); Hematocrit 47.6 % (40-54); Lymphocyte # 1.16 X10^3/ul (0.83-4.51); Lymphocyte % 12.3 % (19-41); Mean Corp Hgb Conc 33.6 g/dL (32-36); Mean Corpuscular Hgb 30.2 pg (27.0-32.0); Mean Platelet Vol. 9.3 fl (6.2-12.0); Monocyte# 0.95 X10^3/uL; NRBC Flagged by Analyzer 0 % (0-5); Neutrophil % 76.2 % (47-70); Platelet Count 241 K/mm3 (150-450); RBC Distribution Width CV 13.2 % (11.6-14.6); RBC Distribution Width SD 43.5 fl (35.1-43.9); Red Blood Count 5.29 M/mm3 (4.6-6.2); White Blood Count 9.5 K/mm3 (4.4-11.0)
[2023-08-11 18:19] LABS: Alcohol, Blood (Medical)-Serum < 3.0 mg/dL
[2023-08-11 18:25] LABS: ALB/GLOB Ratio 1.1 RATIO (0.9-2.4); AST(SGOT) 17 U/L (15-37); Alanine Aminotransfer ALT/SGPT 23 U/L (16-61); Albumin, Serum 3.9 g/dL (3.2-5.0); Alkaline Phosphatase 82 U/L (45-117); Anion Gap 9 (5-15); BUN 16 mg/dL (7-18); BUN/Creat Ratio 12.1 RATIO (10-20); Calcium,Total 9.4 mg/dL (8.5-10.1); Chloride 106 mmol/L (98-107); Creatinine, Serum 1.32 mg/dL (0.70-1.30); EST Glomerular Filtration Rate 57 mL/min (>60); Est Glom Filt Rate - Afr Amer 69 mL/min (>60); Estimated Creatinine Clearance 71.74 ml/min; Globulin 3.5 g/dL (2.2-4.2); Glucose 107 mg/dL (74-106); Potassium 3.5 mmol/L (3.5-5.1); Protein, Total 7.4 g/dL (6.4-8.2); Sodium Level 137 mmol/L (136-145)
[2023-08-11 19:30] LABS: Amphetamine Urine VISTA NEGATIVE (<1000 ng/mL); Barbiturate Urine VISTA NEGATIVE (< 200 ng/mL); Benzodiazepine Urine VISTA NEGATIVE (< 200 ng/mL); Cocaine Urine VISTA NEGATIVE (< 300 ng/mL); Ecstacy Urine VISTA POSITIVE (< 500 ng/mL); Methadone Urine VISTA NEGATIVE (< 300 ng/mL); PCP Urine VISTA NEGATIVE (< 25 ng/mL); THC Urine VISTA POSITIVE (< 50 ng/mL); Vista UDS pH Range 5
--- NOTE | 2023-08-11 20:02 | NURSING ---
informed crisis since they where at the hospital and gave them the chart
[2023-08-11 20:06] VITALS: RESP 18
[2023-08-11] MEDS: traZODone 100 MG Tablet 200 MG PO (22:23)
[2023-08-12 02:41] VITALS: BP 128/73; PULSE 62; TEMP 36.4; O2SAT 95
[2023-08-12 06:40] VITALS: BP 130/75; PULSE 64; TEMP 36.8; O2SAT 96
== END 2023-08-12 06:59 ==
PROVIDERS: Emergency Provider Emergency Medicine; PCP Family Medicine; Visit Provider Emergency Medicine
DX: F32.9 Major depressive disorder, single episode, unspecified (principal); F41.9 Anxiety disorder, unspecified; I10 Essential (primary) hypertension; R45.851 Suicidal ideations; F17.220 Nicotine dependence, chewing tobacco, uncomplicated; Z79.899 Other long term (current) drug therapy; Z91.51 Personal history of suicidal behavior
CPT/HCPCS: 80053; 80307; 80320; 85025; 93005; 99284; G0480